=== PATIENT | male | born 2000 | race African-American/Black ===

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

== ENCOUNTER 2018-10-03 00:56 | Emergency (ER) | payer SELFPAY ==
[~2018-10-03] VITALS: Ht 175.3 cm; Wt 73.0 kg
[2018-10-03] MEDS ORDERED: IBUPROFEN 600MG TABLET PO STA (03:07)
[2018-10-03] MEDS ORDERED: CEFTRIAXONE SODIUM 1 G/VIAL IM ONE (03:15)
[2018-10-03] MEDS ORDERED: LIDOCAINE HCL/PF 1% 10 MG/ML 5ML VIAL IJ ONE (03:15)
[2018-10-03] MEDS ORDERED: AZITHROMYCIN 500 MG TABLET PO ONE (03:15)
[2018-10-03 04:31] VITALS: BP 121/72
== END 2018-10-03 04:32 | disposition home or self-care (01) ==
LOC: ER 00:56
DX: J02.9 Acute pharyngitis, unspecified (principal); N34.2 Other urethritis
CPT/HCPCS: 96372; 99284; J0696; J3490

== ENCOUNTER 2019-01-08 08:11 | Emergency (ER) | payer MEDICAID ==
[~2019-01-08] VITALS: Ht 167.6 cm; Wt 70.0 kg
[2019-01-08] MEDS ORDERED: LORAZEPAM 2MG/ML CPJ IM ONE (08:15)
[2019-01-08] MEDS ORDERED: OLANZAPINE 10 MG/VIAL IM ONE (08:15)
[2019-01-08 11:03] LABS: BASOPHILS % 0.8 % (0.0-2.0); EOSINOPHILS % 0.7 % (0.0-5.0); HEMATOCRIT. 45.4 % (42.0-52.0); HEMOGLOBIN. 15.6 g/dL (14.0-18.0); LYMPHOCYTES % 10.9 % (20.0-50.0); MEAN CORPUSCULAR HEMOGLOBIN 29.2 pg (28.0-32.0); MEAN PLATELET VOLUME 7.5 fl (7.4-10.4); MONOCYTES % 8.9 % (2.0-8.0); NEUTROPHILS % 78.7 % (40.0-76.0); PLATELET 331 x1000/uL (130-400); RED BLOOD CELL COUNT 5.34 mill/uL (4.7-6.1); RED CELL DISTRIBUTION WIDTH 13.6 % (11.6-14.6)
[2019-01-08 11:09] LABS: CHLORIDE 99 mEq/L (98-107)
[2019-01-08 11:13] LABS: ETHANOL BLOOD < 10 mg/dL
[2019-01-08 11:16] LABS: PHENCYCLIDINE URINE SCREEN NEGATIVE (NEGATIVE)
[2019-01-08 11:18] LABS: *BARBITURATES SCREEN URINE NEGATIVE (NEGATIVE); *COCAINE SCREEN URINE NEGATIVE (NEGATIVE)
[2019-01-08 11:19] LABS: CANNABINOID URINE SCREEN PRESUMTIVE POSITIVE (NEGATIVE)
[2019-01-08 11:21] LABS: *AMPHETAMINES SCREEN URINE NEGATIVE (NEGATIVE)
[2019-01-08 11:23] LABS: *BENZODIAZEPINES SCREEN URINE NEGATIVE (NEGATIVE)
[2019-01-08 11:25] LABS: METHADONE URINE SCREEN NEGATIVE (NEGATIVE); OPIATES URINE SCREEN NEGATIVE (NEGATIVE)
[2019-01-08 15:25] LABS: CLARITY URINE CLEAR (CLEAR); COLOR URINE DARK YELLOW (YELLOW); KETONES URINE 4+ (NEGATIVE); LEUKOCYTE ESTERASE URINE TRACE (NEGATIVE); NITRITE URINE NEGATIVE (NEGATIVE); OCCULT BLOOD URINE 2+ (NEGATIVE); PROTEIN URINE 2+ (NEGATIVE); SPECIFIC GRAVITY URINE 1.033 (1.005-1.030)
[2019-01-08] MEDS ORDERED: LEVOFLOXACIN 250MG TABLET PO ONE (20:45)
[2019-01-08] MEDS ORDERED: HALOPERIDOL LACTATE 5MG/ML VIAL IM ONE (21:45)
[2019-01-09] MEDS ORDERED: LORAZEPAM 2MG/ML CPJ IM ONE ×3 (00:45→21:45)
[2019-01-09] MEDS ORDERED: HALOPERIDOL LACTATE 5MG/ML VIAL IM ONE ×3 (00:45→21:45)
[2019-01-10] MEDS ORDERED: LORAZEPAM 2MG/ML CPJ IM ONE (12:15)
[2019-01-10] MEDS ORDERED: HALOPERIDOL LACTATE 5MG/ML VIAL IM ONE (12:15)
[2019-01-10] MEDS ORDERED: DIPHENHYDRAMINE 50MG/ML VIAL IM ONE (12:45)
[2019-01-11 10:40] VITALS: BP 125/88
== END 2019-01-11 11:39 ==
LOC: ER 08:11
DX: F23 Brief psychotic disorder (principal); N39.0 Urinary tract infection, site not specified; R45.1 Restlessness and agitation; F41.9 Anxiety disorder, unspecified; F32.9 Major depressive disorder, single episode, unspecified
CPT/HCPCS: 36415; 70450; 80053; 80305; 80307; 80320; 80329; 81003; 85025; 87086; 93005; 96372; 99285; J1200; J1630; J2060; J3490; Z7610; G0480

== ENCOUNTER 2019-02-10 13:13 | Emergency (ER) | payer MEDICAID ==
[~2019-02-10] VITALS: Ht 172.7 cm; Wt 138.5 kg
[2019-02-10 13:22] VITALS: BP 140/78
== END 2019-02-10 13:46 | disposition left against medical advice (07) ==
LOC: ER 13:13
DX: S30.810A Abrasion of lower back and pelvis, initial encounter (principal); Z53.21 Procedure and treatment not carried out due to patient leaving prior to being seen by health care provider; X58.XXXA Exposure to other specified factors, initial encounter

== ENCOUNTER 2019-02-10 21:43 | Emergency (ER) | payer MEDICAID ==
[~2019-02-10] VITALS: Ht 177.8 cm; Wt 82.0 kg
[2019-02-10] MEDS ORDERED: SODIUM CHLORIDE 0.9% 1,000 ML IV ONE (21:56)
[2019-02-10] MEDS ORDERED: LORAZEPAM 2MG/ML CPJ IM ONE (22:00)
[2019-02-10] MEDS ORDERED: OLANZAPINE 10 MG/VIAL IM ONE (22:00)
[2019-02-10 23:49] LABS: BASOPHILS % 0.5 % (0.0-2.0); CHLORIDE 107 mEq/L (98-107); EOSINOPHILS % 0.3 % (0.0-5.0); HEMATOCRIT. 40.7 % (42.0-52.0); HEMOGLOBIN. 13.9 g/dL (14.0-18.0); LYMPHOCYTES % 12.1 % (20.0-50.0); MEAN CORPUSCULAR VOLUME 85.1 fL (80.0-94.0); MEAN PLATELET VOLUME 7.2 fl (7.4-10.4); MONOCYTES % 8.9 % (2.0-8.0); NEUTROPHILS % 78.2 % (40.0-76.0); PLATELET 307 x1000/uL (130-400); RED BLOOD CELL COUNT 4.79 mill/uL (4.7-6.1); RED CELL DISTRIBUTION WIDTH 13.7 % (11.6-14.6)
[2019-02-10 23:54] LABS: ETHANOL BLOOD < 10 mg/dL
[2019-02-11 00:32] LABS: *BARBITURATES SCREEN URINE NEGATIVE (NEGATIVE)
[2019-02-11 00:33] LABS: *AMPHETAMINES SCREEN URINE NEGATIVE (NEGATIVE); *BENZODIAZEPINES SCREEN URINE NEGATIVE (NEGATIVE); *COCAINE SCREEN URINE NEGATIVE (NEGATIVE); METHADONE URINE SCREEN NEGATIVE (NEGATIVE); OPIATES URINE SCREEN NEGATIVE (NEGATIVE)
[2019-02-11 00:34] LABS: CANNABINOID URINE SCREEN PRESUMTIVE POSITIVE (NEGATIVE); PHENCYCLIDINE URINE SCREEN NEGATIVE (NEGATIVE)
[2019-02-11 09:45] VITALS: BP 95/56
== END 2019-02-11 10:13 | disposition home or self-care (01) ==
LOC: ER 21:43
DX: F29 Unspecified psychosis not due to a substance or known physiological condition (principal); R03.0 Elevated blood-pressure reading, without diagnosis of hypertension
CPT/HCPCS: 36415; 70450; 80053; 80305; 80320; 83690; 84484; 85025; 93005; 96372; 99284; J2060; J3490; J7030; G0480

== ENCOUNTER 2023-08-11 23:43 | Inpatient (IN) | payer MEDICAID, OTHER ==
[~2023-08-11] VITALS: Ht 180.3 cm; Wt 98.0 kg
[2023-08-12] MEDS: HALOPERIDOL LACTATE 5MG/ML VIAL IM ONE (04:05)
[2023-08-12] MEDS: LORAZEPAM 2MG/ML INJ IM ONE (04:05)
[2023-08-12] MEDS: DIPHENHYDRAMINE 50MG/ML VIAL IM ONE (04:05)
[2023-08-12 04:22] LABS: BASOPHILS % 0.6 % (0.0-2.0); EOSINOPHILS % 2.1 % (0.0-5.0); HEMOGLOBIN. 14.5 g/dL (14.0-18.0); MEAN CORPUSCULAR HEMOGLOBIN 27.6 pg (28.0-32.0); MEAN CORPUSCULAR VOLUME 83.5 fL (80.0-94.0); NEUTROPHILS % 69.3 % (40.0-76.0); PLATELET 402 x1000/uL (130-400); RED BLOOD CELL COUNT 5.27 mill/uL (4.7-6.1); RED CELL DISTRIBUTION WIDTH 15.2 % (11.6-14.6); WHITE BLOOD COUNT 12.8 x1000/uL (4.5-11.0)
[2023-08-12 04:24] LABS: CLARITY URINE CLEAR (CLEAR); COLOR URINE YELLOW (YELLOW); GLUCOSE URINE NEGATIVE (NEGATIVE); KETONES URINE 1+ (NEGATIVE); LEUKOCYTE ESTERASE URINE NEGATIVE (NEGATIVE); NITRITE URINE NEGATIVE (NEGATIVE); OCCULT BLOOD URINE NEGATIVE (NEGATIVE); PROTEIN URINE NEGATIVE (NEGATIVE); SPECIFIC GRAVITY URINE 1.027 (1.005-1.030)
[2023-08-12 04:32] LABS: *AMPHETAMINES SCREEN URINE NEGATIVE (NEGATIVE); *BARBITURATES SCREEN URINE NEGATIVE (NEGATIVE); *BENZODIAZEPINES SCREEN URINE NEGATIVE (NEGATIVE); *COCAINE SCREEN URINE NEGATIVE (NEGATIVE); CANNABINOID URINE SCREEN NEGATIVE (NEGATIVE); ECSTASY MDMA SCREEN URINE NEGATIVE (NEGATIVE); METHADONE URINE SCREEN Neg (NEGATIVE); OPIATES URINE SCREEN NEGATIVE (NEGATIVE); PHENCYCLIDINE URINE SCREEN NEGATIVE (NEGATIVE)
[2023-08-12 05:05] LABS: AMMONIA 142 uMol/L (<32)
[2023-08-12 05:17] LABS: ACETAMINOPHEN < 2 ug/mL (10-30); ALANINE AMINOTRANSFERASE 50 IU/L (10-49); ALBUMIN 5.3 g/dL (3.2-4.8); ASPARTATE AMINOTRANSFERASE 37 IU/L (<34); BILIRUBIN TOTAL 0.6 mg/dL (0.1-1.0); CALCIUM 10.3 mg/dL (8.7-10.4); CARBON DIOXIDE 23 mEq/L (21-32); CHLORIDE 102 mEq/L (98-107); CREATININE 1.1 mg/dL (0.6-1.3); GLUCOSE 106 mg/dL (70-105); POTASSIUM 5.4 mEq/L (3.5-5.1); PROTEIN TOTAL 9.2 g/dL (6.0-8.3); SODIUM 142 mEq/L (136-145); UREA NITROGEN BLOOD 12 mg/dL (9-23)
[2023-08-12 05:32] LABS: ETHANOL BLOOD < 10 mg/dL (<10)
[2023-08-12 06:53] VITALS: BP 112/47; PULSE 79; RESP 20; TEMP 97.7
[2023-08-12 08:00] VITALS: BP 116/68; PULSE 83; RESP 20; TEMP 97.9
[2023-08-12] MEDS ORDERED: ONDANSETRON HCL 4MG/2ML INJ IV PRN (08:15)
[2023-08-12] MEDS ORDERED: LORAZEPAM 2MG/ML INJ IV PRN (08:45)
[2023-08-12 12:00] VITALS: BP 127/78; PULSE 103; RESP 20; TEMP 97.8
[2023-08-12] MEDS: LACTULOSE 20G/30ML UDC PO SCH (14:10)
[2023-08-12 16:00] VITALS: BP 128/70; PULSE 96; RESP 18; TEMP 97.6
[2023-08-12] MEDS: LORAZEPAM 1MG TABLET PO PRN (18:23)
[2023-08-12 20:00] VITALS: BP_SYST 127; BP_SYST 142; BP_DIAS 73; BP_DIAS 86; PULSE 111; PULSE 114; RESP 19; RESP 20; TEMP 98; TEMP 98.9
[2023-08-13] VITALS: BP 127/73; PULSE 111; RESP 19; TEMP 98
[2023-08-13 04:00] VITALS: BP 133/79; PULSE 94; RESP 20; TEMP 98.4
[2023-08-13 06:22] LABS: AMMONIA 37 uMol/L (<32)
[2023-08-13 08:00] VITALS: BP 125/88; PULSE 88; RESP 18; TEMP 98
[2023-08-13 12:00] VITALS: BP_SYST 133; BP_SYST 90; BP_DIAS 80; BP_DIAS 89; PULSE 89; RESP 18; TEMP 97.7; TEMP 98
[2023-08-13] MEDS ORDERED: LORAZEPAM 1MG TABLET PO PRN (12:15)
[2023-08-13] MEDS ORDERED: RISP1 MT (12:58)
[2023-08-13] MEDS: RISPERIDONE 1MG TABLET PO SCH (13:29)
[2023-08-13 14:13] VITALS: BP 125/89; PULSE 88; TEMP 98; O2SAT 97
== END 2023-08-13 17:00 | disposition home or self-care (01) | DRG 52 ==
LOC: ER 23:43 → 7EST 08-12 05:47 → EDBEDREQ 08-12 05:54 → 7EST 08-12 13:04
PROVIDERS: ADMIT Internal Medicine; ATTEND Internal Medicine
DX: G93.41 Metabolic encephalopathy (principal); E72.20 Disorder of urea cycle metabolism, unspecified; F20.9 Schizophrenia, unspecified; Z20.822 Contact with and (suspected) exposure to COVID-19
CPT/HCPCS: 36415; 71045; 80053; 80305; 80307; 80320; 80329; 81003; 82140; 85025; 87426; 99285; J1200; J1630; J2060; G0480

== ENCOUNTER 2023-09-19 10:10 | Emergency (ER) | payer MEDICAID, OTHER ==
[~2023-09-19] VITALS: Ht 180.3 cm; Wt 83.0 kg
[~2023-09-19 10:10] MED LIST: RISP1 MT
[2023-09-19 10:23] VITALS: BP 136/69; TEMP 98.2; O2SAT 100
[2023-09-19 10:26] VITALS: PULSE 79; RESP 16
[2023-09-19] MEDS: OLANZAPINE 5MG TABLET ODT PO ONE (10:46)
[2023-09-19] MEDS: LORAZEPAM 1MG TABLET PO ONE (10:46)
[2023-09-19 10:56] LABS: HEMATOCRIT. 42.5 % (42.0-52.0); HEMOGLOBIN. 14.3 g/dL (14.0-18.0); MEAN CORPUSCULAR HEMOGLOBIN 26.9 pg (28.0-32.0); MEAN CORPUSCULAR HGB CONC 33.6 g/dL (31.0-37.0); MEAN CORPUSCULAR VOLUME 80.2 fL (80.0-94.0); MEAN PLATELET VOLUME 7.1 fl (7.4-10.4); PLATELET 341 x1000/uL (130-400); RED BLOOD CELL COUNT 5.29 mill/uL (4.7-6.1); RED CELL DISTRIBUTION WIDTH 14.3 % (11.6-14.6); WHITE BLOOD COUNT 16.1 x1000/uL (4.5-11.0)
[2023-09-19 11:02] LABS: DIFFERENTIAL COMMENT 1
[2023-09-19 11:11] LABS: CLARITY URINE CLEAR (CLEAR); COLOR URINE DARK YELLOW (YELLOW); GLUCOSE URINE NEGATIVE (NEGATIVE); KETONES URINE 3+ (NEGATIVE); LEUKOCYTE ESTERASE URINE NEGATIVE (NEGATIVE); NITRITE URINE NEGATIVE (NEGATIVE); OCCULT BLOOD URINE NEGATIVE (NEGATIVE); PROTEIN URINE 2+ (NEGATIVE); SPECIFIC GRAVITY URINE 1.039 (1.005-1.030)
[2023-09-19 11:13] LABS: ACETAMINOPHEN < 2 ug/mL (10-30); ALANINE AMINOTRANSFERASE 13 IU/L (10-49); ALBUMIN 5.5 g/dL (3.2-4.8); ASPARTATE AMINOTRANSFERASE 51 IU/L (<34); CARBON DIOXIDE 23 mEq/L (21-32); CHLORIDE 101 mEq/L (98-107); CREATININE 1.1 mg/dL (0.6-1.3); GLUCOSE 105 mg/dL (70-105); POTASSIUM 3.5 mEq/L (3.5-5.1); PROTEIN TOTAL 9.6 g/dL (6.0-8.3); SODIUM 134 mEq/L (136-145); UREA NITROGEN BLOOD 12 mg/dL (9-23)
[2023-09-19 11:14] LABS: AMMONIA < 17 uMol/L (<32)
[2023-09-19 11:16] LABS: ETHANOL BLOOD < 10 mg/dL (<10)
[2023-09-19 11:30] LABS: BACTERIA URINE 2+; MUCUS URINE 2+ /lpf (NONE/TRACE); RBC URINE NONE SEEN /hpf (0-2); SQUAMOUS EPITHELIAL CELL URINE NONE SEEN /lpf (RARE/1+); WBC URINE 0-2 /hpf (0-2); YEAST URINE NONE SEEN
[2023-09-19 11:49] LABS: PLATELET ESTIMATE NORMAL
[2023-09-19 12:25] LABS: *AMPHETAMINES SCREEN URINE NEGATIVE (NEGATIVE); *BARBITURATES SCREEN URINE NEGATIVE (NEGATIVE); *BENZODIAZEPINES SCREEN URINE NEGATIVE (NEGATIVE); *COCAINE SCREEN URINE NEGATIVE (NEGATIVE); CANNABINOID URINE SCREEN NEGATIVE (NEGATIVE); ECSTASY MDMA SCREEN URINE NEGATIVE (NEGATIVE); METHADONE URINE SCREEN Neg (NEGATIVE); OPIATES URINE SCREEN NEGATIVE (NEGATIVE); PHENCYCLIDINE URINE SCREEN NEGATIVE (NEGATIVE)
== END 2023-09-19 12:37 | disposition home or self-care (01) ==
LOC: ER 10:10 → CANBEDREQ 09-20 14:24
DX: F20.9 Schizophrenia, unspecified (principal); F22 Delusional disorders
CPT/HCPCS: 36415; 80053; 80305; 80307; 80320; 80329; 81003; 82140; 85025; 93005; 99284; G0480

== ENCOUNTER 2023-09-19 12:34 | Emergency (ER) | payer MEDICAID, OTHER ==
[~2023-09-19] VITALS: Ht 172.7 cm; Wt 76.0 kg
[2023-09-19] MEDS: OLANZAPINE 5MG TABLET ODT PO ONE (14:00)
[2023-09-19] MEDS: LORAZEPAM 1MG TABLET PO ONE (14:00)
[2023-09-19] MEDS: OLANZAPINE 10 MG/VIAL IM ONE (14:15)
[2023-09-19] MEDS: MIDAZOLAM HCL 2 MG/2 ML VIAL IM ONE (14:15)
[2023-09-19 15:47] VITALS: O2SAT 99
[2023-09-20 00:42] LABS: BASOPHILS % 0.7 % (0.0-2.0); EOSINOPHILS % 2.1 % (0.0-5.0); HEMATOCRIT. 42.6 % (42.0-52.0); HEMOGLOBIN. 14.7 g/dL (14.0-18.0); LYMPHOCYTES % 14.6 % (20.0-50.0); MEAN CORPUSCULAR HEMOGLOBIN 28.2 pg (28.0-32.0); MEAN CORPUSCULAR HGB CONC 34.5 g/dL (31.0-37.0); MEAN CORPUSCULAR VOLUME 81.7 fL (80.0-94.0); MEAN PLATELET VOLUME 7.3 fl (7.4-10.4); NEUTROPHILS % 69.6 % (40.0-76.0); PLATELET 325 x1000/uL (130-400); RED BLOOD CELL COUNT 5.21 mill/uL (4.7-6.1); RED CELL DISTRIBUTION WIDTH 14.2 % (11.6-14.6); WHITE BLOOD COUNT 12.7 x1000/uL (4.5-11.0)
[2023-09-20 00:50] LABS: CLARITY URINE CLEAR (CLEAR); COLOR URINE YELLOW (YELLOW); GLUCOSE URINE NEGATIVE (NEGATIVE); KETONES URINE 1+ (NEGATIVE); LEUKOCYTE ESTERASE URINE NEGATIVE (NEGATIVE); NITRITE URINE NEGATIVE (NEGATIVE); OCCULT BLOOD URINE NEGATIVE (NEGATIVE); PH URINE 6.5 (4.5-8.0); PROTEIN URINE TRACE (NEGATIVE); SPECIFIC GRAVITY URINE 1.012 (1.005-1.030); UROBILINOGEN URINE 0.2 E.U./dL (0.2-1.0)
[2023-09-20] MEDS: HALOPERIDOL LACTATE 5MG/ML VIAL IM ONE ×2 (00:54→16:45)
[2023-09-20] MEDS: LORAZEPAM 2MG/ML INJ IM ONE (00:55)
[2023-09-20] MEDS: DIPHENHYDRAMINE 50MG/ML VIAL IM ONE (00:55)
[2023-09-20 00:59] LABS: *AMPHETAMINES SCREEN URINE NEGATIVE (NEGATIVE); *BARBITURATES SCREEN URINE NEGATIVE (NEGATIVE); *BENZODIAZEPINES SCREEN URINE PRESUMPTIVE POSITIVE (NEGATIVE); *COCAINE SCREEN URINE NEGATIVE (NEGATIVE); CANNABINOID URINE SCREEN NEGATIVE (NEGATIVE); ECSTASY MDMA SCREEN URINE NEGATIVE (NEGATIVE); METHADONE URINE SCREEN Neg (NEGATIVE); OPIATES URINE SCREEN NEGATIVE (NEGATIVE); PHENCYCLIDINE URINE SCREEN NEGATIVE (NEGATIVE)
[2023-09-20 01:03] LABS: ACETAMINOPHEN < 2 ug/mL (10-30); ALANINE AMINOTRANSFERASE 19 IU/L (10-49); ALBUMIN 5.5 g/dL (3.2-4.8); ASPARTATE AMINOTRANSFERASE 88 IU/L (<34); BILIRUBIN TOTAL 1.3 mg/dL (0.1-1.0); CARBON DIOXIDE 26 mEq/L (21-32); CHLORIDE 102 mEq/L (98-107); CREATININE 1.1 mg/dL (0.6-1.3); GLUCOSE 85 mg/dL (70-105); POTASSIUM 3.6 mEq/L (3.5-5.1); PROTEIN TOTAL 9.5 g/dL (6.0-8.3); SODIUM 136 mEq/L (136-145); UREA NITROGEN BLOOD 10 mg/dL (9-23)
[2023-09-20 01:21] LABS: ETHANOL BLOOD < 10 mg/dL (<10)
[2023-09-20 03:10] LABS: BACTERIA URINE NONE SEEN; RBC URINE NONE SEEN /hpf (0-2); SQUAMOUS EPITHELIAL CELL URINE NONE SEEN /lpf (RARE/1+); WBC URINE 0-2 /hpf (0-2)
[2023-09-20] MEDS: OLANZAPINE 5MG TABLET ODT PO SCH (10:00)
[2023-09-20] MEDS: LORAZEPAM 1MG TABLET PO ONE (14:30)
[2023-09-20] MEDS ORDERED: LORAZEPAM 2MG/ML INJ IM ONE (16:45)
[2023-09-20] MEDS: LORAZEPAM 2MG/ML INJ IM SCH (17:00)
[2023-09-20 17:02] VITALS: BP 118/62; PULSE 85; RESP 12; TEMP 98
[2023-09-20] MEDS: ZIPRASIDONE MESYLATE 20MG/VIAL IM NR (18:12)
== END 2023-09-20 21:16 | disposition short-term general hospital (02) ==
LOC: ER 12:40
DX: F20.9 Schizophrenia, unspecified (principal); Z20.822 Contact with and (suspected) exposure to COVID-19
CPT/HCPCS: 80053; 80305; 81003; 80307; 80329; 80320; 85025; 36415; 96372 ×2; 99291; 87426; J3490; J2250; Z7610 ×2; J1200; J1630; J2060; J3486; G0480

== ENCOUNTER 2024-12-21 14:42 | Emergency (ER) | payer MEDICAID ==
[~2024-12-21] VITALS: Ht 177.8 cm; Wt 100.0 kg
[2024-12-21 14:48] VITALS: O2SAT 96
[2024-12-21 16:17] LABS: CLARITY URINE CLEAR (CLEAR); GLUCOSE URINE NEGATIVE (NEGATIVE); KETONES URINE 4+ (NEGATIVE); LEUKOCYTE ESTERASE URINE NEGATIVE (NEGATIVE); NITRITE URINE NEGATIVE (NEGATIVE); OCCULT BLOOD URINE NEGATIVE (NEGATIVE); PH URINE 6.0 (4.5-8.0); PROTEIN URINE TRACE (NEGATIVE); SPECIFIC GRAVITY URINE 1.023 (1.005-1.030); UROBILINOGEN URINE 2.0 E.U./dL (0.2-1.0)
[2024-12-21 16:26] LABS: *AMPHETAMINES SCREEN URINE NEGATIVE (NEGATIVE); *BARBITURATES SCREEN URINE NEGATIVE (NEGATIVE); *BENZODIAZEPINES SCREEN URINE NEGATIVE (NEGATIVE); *COCAINE SCREEN URINE NEGATIVE (NEGATIVE); CANNABINOID URINE SCREEN NEGATIVE (NEGATIVE); ECSTASY MDMA SCREEN URINE NEGATIVE (NEGATIVE); METHADONE URINE SCREEN NEGATIVE (NEGATIVE); OPIATES URINE SCREEN NEGATIVE (NEGATIVE); PHENCYCLIDINE URINE SCREEN NEGATIVE (NEGATIVE)
[2024-12-21 16:36] LABS: COLOR URINE YELLOW (YELLOW)
[2024-12-21 16:37] LABS: RBC URINE NONE SEEN /hpf (0-2); WBC URINE 0-2 /hpf (0-2)
[2024-12-21 16:38] LABS: BACTERIA URINE NONE SEEN; SQUAMOUS EPITHELIAL CELL URINE NONE SEEN /lpf (RARE/1+)
[2024-12-21 16:40] LABS: MUCUS URINE 1+ /lpf (NONE/TRACE)
[2024-12-21 16:47] VITALS: BP 124/88; PULSE 65; RESP 16; TEMP 36.6; O2SAT 99
== END 2024-12-21 16:54 | disposition home or self-care (01) ==
LOC: ER 14:42
DX: Z00.00 Encounter for general adult medical examination without abnormal findings (principal); Z79.899 Other long term (current) drug therapy
CPT/HCPCS: 80305; 81003; 99283

== ENCOUNTER 2025-01-09 18:53 | Emergency (ER) | payer MEDICAID ==
[~2025-01-09] VITALS: Ht 170.2 cm; Wt 72.0 kg
[2025-01-09 18:54] VITALS: TEMP 36.7; O2SAT 99
[2025-01-09 21:31] VITALS: BP 127/85; PULSE 105; RESP 18
[2025-01-09] MEDS: KETOROLAC 15MG/ML VIAL IM ONE (21:31)
[2025-01-09 22:10] LABS: BASOPHILS % 0.4 % (0.0-2.0); EOSINOPHILS % 0.5 % (0.0-5.0); HEMATOCRIT. 43.8 % (42.0-52.0); HEMOGLOBIN. 14.5 g/dL (14.0-18.0); LYMPHOCYTES % 11.6 % (20.0-50.0); MEAN PLATELET VOLUME 7.5 fl (7.4-10.4); MONOCYTES % 8.6 % (2.0-8.0); NEUTROPHILS % 78.9 % (40.0-76.0); PLATELET 361 x1000/uL (130-400); RED BLOOD CELL COUNT 5.16 mill/uL (4.7-6.1); RED CELL DISTRIBUTION WIDTH 14.0 % (11.6-14.6)
[2025-01-09 22:25] LABS: CREATININE 1.2 mg/dL (0.6-1.3); UREA NITROGEN BLOOD 13 mg/dL (9-23)
== END 2025-01-10 00:50 | disposition home or self-care (01) ==
LOC: ER 18:53
DX: K62.89 Other specified diseases of anus and rectum (principal); F20.9 Schizophrenia, unspecified; F31.9 Bipolar disorder, unspecified; Z79.899 Other long term (current) drug therapy
CPT/HCPCS: 99285; 74176; 80048; 85025; 36415; 96372; J1885

== ENCOUNTER 2025-01-12 04:14 | Emergency (ER) | payer MEDICAID ==
[~2025-01-12] VITALS: Ht 182.9 cm; Wt 114.0 kg
[2025-01-12 04:25] VITALS: O2SAT 99
[2025-01-12] MEDS: OLANZAPINE 10 MG/VIAL IM ONE (05:35)
[2025-01-12 06:48] LABS: BASOPHILS % 1.3 % (0.0-2.0); EOSINOPHILS % 0.9 % (0.0-5.0); HEMATOCRIT. 40.8 % (42.0-52.0); HEMOGLOBIN. 14.0 g/dL (14.0-18.0); LYMPHOCYTES % 18.2 % (20.0-50.0); MEAN PLATELET VOLUME 7.7 fl (7.4-10.4); MONOCYTES % 12.0 % (2.0-8.0); NEUTROPHILS % 67.6 % (40.0-76.0); PLATELET 324 x1000/uL (130-400); RED BLOOD CELL COUNT 5.01 mill/uL (4.7-6.1); RED CELL DISTRIBUTION WIDTH 13.8 % (11.6-14.6)
[2025-01-12 07:03] LABS: CREATININE 1.2 mg/dL (0.6-1.3); UREA NITROGEN BLOOD 14 mg/dL (9-23)
[2025-01-12 07:04] LABS: *AMPHETAMINES SCREEN URINE NEGATIVE (NEGATIVE); *BARBITURATES SCREEN URINE NEGATIVE (NEGATIVE); *BENZODIAZEPINES SCREEN URINE NEGATIVE (NEGATIVE); *COCAINE SCREEN URINE NEGATIVE (NEGATIVE); ETHANOL BLOOD < 10 mg/dL (<10); METHADONE URINE SCREEN NEGATIVE (NEGATIVE); OPIATES URINE SCREEN NEGATIVE (NEGATIVE); PHENCYCLIDINE URINE SCREEN NEGATIVE (NEGATIVE)
[2025-01-12 07:05] LABS: ASPARTATE AMINOTRANSFERASE 718 IU/L (<34); BILIRUBIN DIRECT 0.5 mg/dL (<=3.0); CANNABINOID URINE SCREEN NEGATIVE (NEGATIVE); ECSTASY MDMA SCREEN URINE NEGATIVE (NEGATIVE)
[2025-01-12 07:06] LABS: BILIRUBIN TOTAL 1.2 mg/dL (0.1-1.0); PROTEIN TOTAL 7.9 g/dL (6.0-8.3)
[2025-01-12] MEDS: POTASSIUM CHLORIDE 20MEQ/PACKET PO ONE (15:48)
[2025-01-12 16:11] VITALS: BP 130/69; PULSE 65; RESP 15; TEMP 36.8; O2SAT 99
[2025-01-12] MEDS ORDERED: OLANZAPINE 5MG TABLET PO SCH (21:00)
== END 2025-01-12 16:30 ==
LOC: ER 04:22
DX: R45.851 Suicidal ideations (principal); F31.9 Bipolar disorder, unspecified; F20.9 Schizophrenia, unspecified; G40.909 Epilepsy, unspecified, not intractable, without status epilepticus; Z20.822 Contact with and (suspected) exposure to COVID-19; Z00.00 Encounter for general adult medical examination without abnormal findings; Z86.59 Personal history of other mental and behavioral disorders
CPT/HCPCS: 80076; 80305; 80048; 80307; 80329; 80320; 85025; 36415; 96372; 99285; 87426; J3490; Z7610; G0480

== ENCOUNTER 2025-01-25 17:25 | Emergency (ER) | payer MEDICAID ==
[~2025-01-25] VITALS: Ht 182.9 cm; Wt 90.0 kg
[2025-01-25 17:37] VITALS: O2SAT 98
[2025-01-25 18:22] LABS: CLARITY URINE CLEAR (CLEAR); COLOR URINE YELLOW (YELLOW); GLUCOSE URINE NEGATIVE (NEGATIVE); KETONES URINE 1+ (NEGATIVE); LEUKOCYTE ESTERASE URINE NEGATIVE (NEGATIVE); NITRITE URINE NEGATIVE (NEGATIVE); OCCULT BLOOD URINE NEGATIVE (NEGATIVE); PH URINE 6.5 (4.5-8.0); PROTEIN URINE TRACE (NEGATIVE); SPECIFIC GRAVITY URINE 1.026 (1.005-1.030); UROBILINOGEN URINE 1.0 E.U./dL (0.2-1.0)
[2025-01-25 18:36] LABS: BASOPHILS % 0.5 % (0.0-2.0); EOSINOPHILS % 2.7 % (0.0-5.0); HEMATOCRIT. 36.9 % (42.0-52.0); HEMOGLOBIN. 12.4 g/dL (14.0-18.0); LYMPHOCYTES % 15.1 % (20.0-50.0); MEAN PLATELET VOLUME 7.3 fl (7.4-10.4); MONOCYTES % 13.2 % (2.0-8.0); NEUTROPHILS % 68.5 % (40.0-76.0); PLATELET 274 x1000/uL (130-400); RED BLOOD CELL COUNT 4.40 mill/uL (4.7-6.1); RED CELL DISTRIBUTION WIDTH 14.7 % (11.6-14.6)
[2025-01-25 18:41] LABS: *AMPHETAMINES SCREEN URINE NEGATIVE (NEGATIVE); *BARBITURATES SCREEN URINE NEGATIVE (NEGATIVE); *BENZODIAZEPINES SCREEN URINE NEGATIVE (NEGATIVE)
[2025-01-25 18:42] LABS: *COCAINE SCREEN URINE NEGATIVE (NEGATIVE); CANNABINOID URINE SCREEN NEGATIVE (NEGATIVE); ECSTASY MDMA SCREEN URINE NEGATIVE (NEGATIVE); METHADONE URINE SCREEN NEGATIVE (NEGATIVE); OPIATES URINE SCREEN NEGATIVE (NEGATIVE); PHENCYCLIDINE URINE SCREEN NEGATIVE (NEGATIVE)
[2025-01-25 18:49] LABS: CREATININE 1.1 mg/dL (0.6-1.3)
[2025-01-25 18:50] LABS: ETHANOL BLOOD < 10 mg/dL (<10); UREA NITROGEN BLOOD 8 mg/dL (9-23)
[2025-01-25 18:51] LABS: ASPARTATE AMINOTRANSFERASE 19 IU/L (<34); BILIRUBIN DIRECT 0.2 mg/dL (<=3.0); TROPONIN I HIGH SENSITIVITY < 4 ng/L (3.0-53)
[2025-01-25 18:52] LABS: BILIRUBIN TOTAL 0.5 mg/dL (0.1-1.0); PROTEIN TOTAL 7.1 g/dL (6.0-8.3)
[2025-01-25 18:54] LABS: INR 1.0
[2025-01-25 18:59] LABS: BACTERIA URINE NONE SEEN; MUCUS URINE TRACE /lpf (NONE/TRACE); RBC URINE NONE SEEN /hpf (0-2); SQUAMOUS EPITHELIAL CELL URINE NONE SEEN /lpf (RARE/1+); WBC URINE NONE SEEN /hpf (0-2)
[2025-01-25] MEDS: IBUPROFEN 600MG TABLET PO ONE (20:00)
[2025-01-25] MEDS: OLANZAPINE 10 MG/VIAL IM NR (20:00)
[2025-01-25] MEDS: DIVALPROEX SODIUM 500MG DR TABLET PO SCH (21:40)
[2025-01-26] MEDS ORDERED: HYDROXYZINE 25MG TABLET PO PRN (10:45)
[2025-01-26 17:30] VITALS: BP 118/78; PULSE 88; RESP 16; TEMP 36.7; O2SAT 99
[2025-01-26] MEDS ORDERED: RISPERIDONE 0.5MG TABLET PO SCH (21:00)
== END 2025-01-26 17:45 ==
LOC: ER 17:25
DX: R44.3 Hallucinations, unspecified (principal); Z20.822 Contact with and (suspected) exposure to COVID-19; Z86.59 Personal history of other mental and behavioral disorders
CPT/HCPCS: 80076; 80305; 80048; 81003; 80307; 80329; 80320; 83690; 83735; 85025; 85610; 85730; 84484; 36415; 96372; 99285; 87426; J3490; G0480

== ENCOUNTER 2025-02-20 12:53 | Emergency (ER) | payer MEDICAID ==
[~2025-02-20] VITALS: Ht 182.9 cm; Wt 90.0 kg
== END 2025-02-20 13:29 | disposition left against medical advice (07) ==
LOC: ER 12:53
DX: F20.9 Schizophrenia, unspecified (principal); R41.0 Disorientation, unspecified; Z55.6 Problems related to health literacy
CPT/HCPCS: 99283

== ENCOUNTER 2025-03-12 10:29 | Emergency (ER) | payer MEDICAID ==
[~2025-03-12] VITALS: Ht 175.3 cm; Wt 82.0 kg
[2025-03-12 10:33] VITALS: O2SAT 97
[2025-03-12] MEDS: LORAZEPAM 2MG/ML UD SYRINGE IM NR (12:28)
[2025-03-12] MEDS: OLANZAPINE 10 MG/VIAL IM ONE (12:28)
[2025-03-12 12:53] LABS: *AMPHETAMINES SCREEN URINE NEGATIVE (NEGATIVE); *BARBITURATES SCREEN URINE NEGATIVE (NEGATIVE); *BENZODIAZEPINES SCREEN URINE NEGATIVE (NEGATIVE); *COCAINE SCREEN URINE NEGATIVE (NEGATIVE); METHADONE URINE SCREEN NEGATIVE (NEGATIVE); OPIATES URINE SCREEN NEGATIVE (NEGATIVE)
[2025-03-12 12:54] LABS: CANNABINOID URINE SCREEN NEGATIVE (NEGATIVE); ECSTASY MDMA SCREEN URINE NEGATIVE (NEGATIVE); PHENCYCLIDINE URINE SCREEN NEGATIVE (NEGATIVE)
[2025-03-12 19:47] LABS: CLARITY URINE CLEAR (CLEAR); COLOR URINE YELLOW (YELLOW); GLUCOSE URINE NEGATIVE (NEGATIVE); KETONES URINE TRACE (NEGATIVE); LEUKOCYTE ESTERASE URINE NEGATIVE (NEGATIVE); NITRITE URINE NEGATIVE (NEGATIVE); OCCULT BLOOD URINE NEGATIVE (NEGATIVE); PH URINE 6.5 (4.5-8.0); PROTEIN URINE NEGATIVE (NEGATIVE); SPECIFIC GRAVITY URINE 1.022 (1.005-1.030); UROBILINOGEN URINE 1.0 E.U./dL (0.2-1.0)
[2025-03-12 19:56] LABS: BASOPHILS % 0.8 % (0.0-2.0); EOSINOPHILS % 2.5 % (0.0-5.0); HEMATOCRIT. 39.7 % (42.0-52.0); HEMOGLOBIN. 13.1 g/dL (14.0-18.0); LYMPHOCYTES % 28.8 % (20.0-50.0); MEAN PLATELET VOLUME 7.1 fl (7.4-10.4); MONOCYTES % 12.3 % (2.0-8.0); NEUTROPHILS % 55.6 % (40.0-76.0); PLATELET 305 x1000/uL (130-400); RED BLOOD CELL COUNT 4.68 mill/uL (4.7-6.1); RED CELL DISTRIBUTION WIDTH 14.2 % (11.6-14.6)
[2025-03-12 20:08] LABS: CREATININE 1.2 mg/dL (0.6-1.3)
[2025-03-12 20:09] LABS: ETHANOL BLOOD < 10 mg/dL (<10); UREA NITROGEN BLOOD 7 mg/dL (9-23)
[2025-03-13 08:44] VITALS: BP 120/57; PULSE 69; RESP 16; TEMP 36.9; O2SAT 100
== END 2025-03-13 08:49 ==
LOC: ER 10:29
DX: F20.9 Schizophrenia, unspecified (principal); R07.9 Chest pain, unspecified; Z20.822 Contact with and (suspected) exposure to COVID-19; Z79.899 Other long term (current) drug therapy
CPT/HCPCS: 80305; 80048; 81003; 80307; 80329; 80320; 85025; 36415; 93005; 96372; 99285; 87426; J3490; J2060; G0480

== ENCOUNTER 2025-05-02 07:10 | Inpatient (IN) | payer MEDICAID ==
[~2025-05-02] VITALS: Ht 180.3 cm; Wt 103.9 kg
[2025-05-02] MEDS: OLANZAPINE 10 MG/VIAL IM ONE (07:30)
[2025-05-02] MEDS: LORAZEPAM 2MG/ML UD SYRINGE IM NR (07:40)
[2025-05-02 07:53] LABS: BASOPHILS % 1.3 % (0.0-2.0); EOSINOPHILS % 1.8 % (0.0-5.0); HEMATOCRIT. 38.6 % (42.0-52.0); HEMOGLOBIN. 13.0 g/dL (14.0-18.0); LYMPHOCYTES % 25.3 % (20.0-50.0); MEAN PLATELET VOLUME 7.0 fl (7.4-10.4); MONOCYTES % 10.2 % (2.0-8.0); NEUTROPHILS % 61.4 % (40.0-76.0); PLATELET 305 x1000/uL (130-400); RED BLOOD CELL COUNT 4.65 mill/uL (4.7-6.1); RED CELL DISTRIBUTION WIDTH 14.0 % (11.6-14.6)
[2025-05-02 08:11] LABS: CREATININE 1.3 mg/dL (0.6-1.3)
[2025-05-02 08:12] LABS: ETHANOL BLOOD < 10 mg/dL (<10); UREA NITROGEN BLOOD 10 mg/dL (9-23)
[2025-05-02] MEDS: SODIUM CHLORIDE 0.9% 1,000 ML IV ONE ×4 (13:18→18:32)
[2025-05-02 14:46] VITALS: O2SAT 99
[2025-05-02] MEDS: DIPHENHYDRAMINE 50MG/ML VIAL IM SCH (14:46)
[2025-05-02] MEDS: MIDAZOLAM HCL 2 MG/2 ML VIAL IM SCH (14:46)
[2025-05-02 16:05] LABS: ASPARTATE AMINOTRANSFERASE 84 IU/L (<34); BILIRUBIN DIRECT 0.2 mg/dL (<=3.0); BILIRUBIN TOTAL 0.8 mg/dL (0.1-1.0); PROTEIN TOTAL 7.7 g/dL (6.0-8.3)
[2025-05-02 16:55] LABS: *AMPHETAMINES SCREEN URINE NEGATIVE (NEGATIVE); *BARBITURATES SCREEN URINE NEGATIVE (NEGATIVE); *BENZODIAZEPINES SCREEN URINE PRESUMPTIVE POSITIVE (NEGATIVE); *COCAINE SCREEN URINE NEGATIVE (NEGATIVE); CANNABINOID URINE SCREEN NEGATIVE (NEGATIVE); ECSTASY MDMA SCREEN URINE NEGATIVE (NEGATIVE); METHADONE URINE SCREEN NEGATIVE (NEGATIVE); OPIATES URINE SCREEN NEGATIVE (NEGATIVE); PHENCYCLIDINE URINE SCREEN NEGATIVE (NEGATIVE)
[2025-05-03] VITALS: BP 121/82; PULSE 74; RESP 22; TEMP 36.2; O2SAT 98
[2025-05-03] MEDS: SODIUM CHLORIDE 0.9% 1,000 ML IV SCH (03:12)
[2025-05-03 05:05] VITALS: BP 121/82; PULSE 74; RESP 22; TEMP 36.2512
[2025-05-03 08:00] VITALS: BP 130/67; PULSE 89; RESP 22; TEMP 36.7; O2SAT 100
[2025-05-03 12:00] VITALS: BP 109/79; PULSE 89; RESP 19; TEMP 36.8; O2SAT 95
[2025-05-03 16:00] VITALS: PULSE 95; RESP 18; TEMP 36.8; O2SAT 100
[2025-05-04 04:00] VITALS: RESP 16
[2025-05-04 17:28] LABS: CREATININE 1.1 mg/dL (0.6-1.3); UREA NITROGEN BLOOD 9 mg/dL (9-23)
[2025-05-04 20:00] VITALS: BP 138/78; PULSE 97; TEMP 36.3
[2025-05-05 08:00] VITALS: BP 109/57; PULSE 74; RESP 19; TEMP 35.7; O2SAT 98
[2025-05-05 12:00] VITALS: BP 142/72; PULSE 99; RESP 19; TEMP 36.8; O2SAT 97
[2025-05-05 16:00] VITALS: BP 121/71; PULSE 90; RESP 19; TEMP 36.9; O2SAT 97
[2025-05-05] MEDS: ACETAMINOPHEN 500MG TABLET PO PRN (17:19)
[2025-05-05] MEDS ORDERED: ACETAMINOPHEN 325MG TABLET PO PRN (19:30)
[2025-05-06 08:00] VITALS: BP 132/83; PULSE 98; RESP 19; TEMP 36.2; O2SAT 99
[2025-05-06] MEDS: ACETAMINOPHEN 325MG TABLET PO PRN (09:57)
[2025-05-06 12:00] VITALS: BP 104/42; PULSE 67; RESP 19; TEMP 36.2; O2SAT 100
[2025-05-06] MEDS: ARIPIPRAZOLE 5MG TABLET PO SCH (14:09)
[2025-05-06 15:25] VITALS: BP 112/61; PULSE 85; RESP 19; TEMP 97.4
[2025-05-06] MEDS ORDERED: TRAZODONE HCL 50MG TABLET PO SCH (21:00)
== END 2025-05-06 17:40 | disposition home or self-care (01) | DRG 817 ==
LOC: ER 07:37 → ENRESERV 21:09 → CANRESERV 21:09 → ENRESERV 21:12 → 8EST 21:50
PROVIDERS: ADMIT Internal Medicine; ATTEND Internal Medicine
PROC: GZ56ZZZ Individual Psychotherapy, Supportive (ICD-10-PCS; principal; 2025-05-02)
DX: T43.592A Poisoning by other antipsychotics and neuroleptics, intentional self-harm, initial encounter (principal); M62.82 Rhabdomyolysis; G92.9 Unspecified toxic encephalopathy; Z78.1 Physical restraint status; F20.9 Schizophrenia, unspecified; Z20.822 Contact with and (suspected) exposure to COVID-19; F41.9 Anxiety disorder, unspecified; Y92.89 Other specified places as the place of occurrence of the external cause; Z79.899 Other long term (current) drug therapy
CPT/HCPCS: 36415; 80048; 80076; 80305; 80307; 80320; 80329; 82550; 85025; 87426; 93005; 96372; 99291; J1200; J2060; J2250; J3490; J7030; G0480

== ENCOUNTER 2025-05-15 13:16 | Emergency (ER) | payer MEDICAID ==
[~2025-05-15] VITALS: Ht 172.7 cm; Wt 87.0 kg
[2025-05-15 13:23] VITALS: O2SAT 100
[2025-05-15] MEDS: DIPHENHYDRAMINE 50MG/ML VIAL IM ONE (15:27)
[2025-05-15] MEDS: HALOPERIDOL LACTATE 5MG/ML VIAL IM ONE (15:27)
[2025-05-15] MEDS: LORAZEPAM 2MG/ML UD SYRINGE IM NR (15:28)
[2025-05-15 18:40] LABS: BASOPHILS % 0.9 % (0.0-2.0); EOSINOPHILS % 1.5 % (0.0-5.0); HEMATOCRIT. 40.2 % (42.0-52.0); HEMOGLOBIN. 13.3 g/dL (14.0-18.0); LYMPHOCYTES % 27.1 % (20.0-50.0); MEAN PLATELET VOLUME 6.8 fl (7.4-10.4); MONOCYTES % 8.9 % (2.0-8.0); NEUTROPHILS % 61.6 % (40.0-76.0); PLATELET 341 x1000/uL (130-400); RED BLOOD CELL COUNT 4.87 mill/uL (4.7-6.1); RED CELL DISTRIBUTION WIDTH 14.2 % (11.6-14.6)
[2025-05-15 18:51] LABS: CREATININE 1.2 mg/dL (0.6-1.3); UREA NITROGEN BLOOD 7 mg/dL (9-23)
[2025-05-15 18:52] LABS: ETHANOL BLOOD < 10 mg/dL (<10)
[2025-05-15 22:04] LABS: *AMPHETAMINES SCREEN URINE NEGATIVE (NEGATIVE); *BENZODIAZEPINES SCREEN URINE NEGATIVE (NEGATIVE)
[2025-05-15 22:05] LABS: *BARBITURATES SCREEN URINE NEGATIVE (NEGATIVE); *COCAINE SCREEN URINE NEGATIVE (NEGATIVE); CANNABINOID URINE SCREEN NEGATIVE (NEGATIVE); ECSTASY MDMA SCREEN URINE NEGATIVE (NEGATIVE); METHADONE URINE SCREEN NEGATIVE (NEGATIVE); OPIATES URINE SCREEN NEGATIVE (NEGATIVE); PHENCYCLIDINE URINE SCREEN NEGATIVE (NEGATIVE)
[2025-05-16 05:00] VITALS: TEMP 36.8
[2025-05-16 07:45] VITALS: BP 129/84; PULSE 84; RESP 16; O2SAT 99
== END 2025-05-16 06:00 | disposition home or self-care (01) ==
LOC: ER 13:16
DX: F41.9 Anxiety disorder, unspecified (principal); F20.9 Schizophrenia, unspecified; F31.9 Bipolar disorder, unspecified; Z20.822 Contact with and (suspected) exposure to COVID-19; Z79.899 Other long term (current) drug therapy
CPT/HCPCS: 80305; 80048; 80307; 80329; 80320; 85025; 36415; 93005; 96372; 99291; 87426; J1200; J1630; J2060; G0480

== ENCOUNTER 2025-05-27 16:25 | Emergency (ER) | payer MEDICAID ==
[~2025-05-27] VITALS: Ht 182.9 cm; Wt 86.0 kg
[2025-05-27 16:31] VITALS: BP 159/90; PULSE 103; RESP 16; TEMP 98.7; O2SAT 98
== END 2025-05-27 17:15 | disposition left against medical advice (07) ==
LOC: ER 16:25
DX: F20.9 Schizophrenia, unspecified (principal); F41.9 Anxiety disorder, unspecified
CPT/HCPCS: 99283

== ENCOUNTER 2025-06-07 05:24 | Emergency (ER) | payer MEDICAID ==
[~2025-06-07] VITALS: Ht 182.9 cm; Wt 97.0 kg
[2025-06-07 05:25] VITALS: O2SAT 100
[2025-06-07] MEDS: OLANZAPINE 10 MG/VIAL IM ONE (05:55)
[2025-06-07] MEDS: LORAZEPAM 2MG/ML UD SYRINGE IM NR (05:57)
[2025-06-07 07:35] LABS: BASOPHILS % 0.4 % (0.0-2.0); EOSINOPHILS % 0.8 % (0.0-5.0); HEMATOCRIT. 37.1 % (42.0-52.0); HEMOGLOBIN. 12.6 g/dL (14.0-18.0); LYMPHOCYTES % 19.5 % (20.0-50.0); MEAN PLATELET VOLUME 7.1 fl (7.4-10.4); MONOCYTES % 8.6 % (2.0-8.0); NEUTROPHILS % 70.7 % (40.0-76.0); PLATELET 345 x1000/uL (130-400); RED BLOOD CELL COUNT 4.58 mill/uL (4.7-6.1); RED CELL DISTRIBUTION WIDTH 14.5 % (11.6-14.6)
[2025-06-07 07:51] LABS: CREATININE 1.0 mg/dL (0.6-1.3)
[2025-06-07 07:52] LABS: ETHANOL BLOOD < 10 mg/dL (<10); UREA NITROGEN BLOOD 9 mg/dL (9-23)
[2025-06-07] MEDS: LORAZEPAM 2MG/ML UD SYRINGE IM SCH (16:22)
[2025-06-07] MEDS: DIPHENHYDRAMINE 50MG/ML VIAL IM ONE (16:23)
[2025-06-07] MEDS: HALOPERIDOL LACTATE 5MG/ML VIAL IM ONE (16:23)
[2025-06-07] MEDS: OLANZAPINE 5MG TABLET ODT PO SCH (21:00)
[2025-06-08] MEDS: LORAZEPAM 2MG/ML UD SYRINGE IM SCH (09:45)
[2025-06-08] MEDS: HALOPERIDOL LACTATE 5MG/ML VIAL IM SCH (09:49)
[2025-06-08] MEDS: DIPHENHYDRAMINE 50MG/ML VIAL IM PRN (09:49)
[2025-06-09 08:45] VITALS: BP 149/89; PULSE 88; RESP 14; TEMP 36.7; O2SAT 100
== END 2025-06-09 09:10 ==
LOC: ER 05:24
DX: R45.851 Suicidal ideations (principal); F20.9 Schizophrenia, unspecified; F31.9 Bipolar disorder, unspecified; Z20.822 Contact with and (suspected) exposure to COVID-19
CPT/HCPCS: 80048; 80320; 85025; 36415; 96372 ×2; 99285; 87426; J3490; J1200 ×2; J1630 ×2; J2060 ×2; G0480